=== PATIENT | male | born 1970 | race American Indian/Alaskan Native ===

== ENCOUNTER 2018-05-25 13:44 | Inpatient (IN) | payer BC ==
[2018-05-25] MEDS ORDERED: NACL 0.9% 3 ML SYG IV (14:30)
[2018-05-25] MEDS ORDERED: ONDANSETRON 4 MG INJ IV (14:30)
[2018-05-25] MEDS ORDERED: ZOLPIDEM 5 MG TAB PO (14:30)
[2018-05-25] MEDS ORDERED: HYDROCODONE/APAP (5/325) TAB PO (14:30)
[2018-05-25] MEDS ORDERED: MAGNESIUM HYDROXIDE 30ML CUP PO (14:30)
[2018-05-25] MEDS ORDERED: morphine 2 MG INJ IV (14:30)
[2018-05-25] MEDS ORDERED: DOCUSATE SODIUM 100 MG CAP PO (14:30)
[2018-05-25] MEDS: SOD CHLORIDE 0.9% 1,000 ML IV (15:01)
[2018-05-25] MEDS: ACETAMINOPHEN 325 MG TAB PO (15:07)
[2018-05-26] MEDS ORDERED: PANTOPRAZOLE 40 MG INJ IV (06:00)
== END 2018-05-25 17:52 | disposition left against medical advice (07) | DRG 558 ==
LOC: MS1 13:44
DX: M62.82 Rhabdomyolysis (principal); X30.XXXA Exposure to excessive natural heat, initial encounter
CPT/HCPCS: 87081